=== PATIENT | male | born 1975 | race Caucasian/White ===

== ENCOUNTER 2023-10-16 21:25 | Emergency (ER) | payer OTHER, SELFPAY ==
[2023-10-16 21:27] VITALS: BP 160/89; BMI 31.2
--- NOTE | 2023-10-16 22:13 | ED.SKININJ ---
HPI-Injury
General
Chief Complaint: Skin Problem
Source: patient
Exam Limitations: none
Time Seen by Provider: 10/16/23 22:02
Travel History
Have you had any contact with someone who has COVID-19?: No
Do you have any symptoms of coronavirus? Fever > 100 degrees, chills, cough, shortness of breath, sore throat, loss of taste or smell, muscle aches, or headache?: No
History of Present Illness-Injury
Initial Injury comments:
48-year-old male who presents with redness swelling and pain to the inferior right buttock starting several days ago getting worse. He has been using warm soaks and compresses and today noticed purulent drainage. He does feel slightly improved
since it started draining. No measurable fever. No chest pain or shortness of breath. He is healthy otherwise. Not diabetic. No nausea or vomiting. No other complaints at this time
Phy Exam
Physical Exam
Physical Exam:
General: Well-appearing male no acute respiratory distress
HEENT: Normocephalic atraumatic
Skin: Right inferior buttock with induration and a draining area. There is a mild amount of purulent drainage. There is no palpable fluctuance. Total area of induration is about 4 cm in diameter. Patient's underwear was with significant mount of
purulent drainage in it.
Extremities: No cyanosis
Course
Orders/Labs/Results
Orders:
Orders
10/16/23 22:12
Cephalexin Monohydrate [Keflex] 500 mg PO NOW STA
Sulfamethox./Trimethoprim Ds [Bactrim Ds 800 mg/160 mg] 1 tablet PO NOW STA
Vital Signs
Initial and Last Documented VS:
Initial Vital Signs
Temp Pulse Resp BP Pulse Ox
99.4 F 107 16 160/89 98
10/16/23 21:27 10/16/23 21:27 10/16/23 21:27 10/16/23 21:27 10/16/23 21:27
Last Documented Vital Signs
Temp Pulse Resp BP Pulse Ox
99.4 F 107 16 160/89 98
10/16/23 21:27 10/16/23 21:27 10/16/23 21:27 10/16/23 21:27 10/16/23 21:27
MDM/Problems Addressed
Differential Diagnosis Includes:
Erythema and swelling to the right buttock. Question possible abscess versus for cellulitis.
Clinically on exam, there is no further fluctuance. It seems to have drained on its own. There is a residual induration noted and some tenderness. Will cover for staph and strep with Bactrim and Keflex. 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
candidate for doxycycline
At this point there is no indication for any further incision and drainage. Advised continued warm soaks or compresses and return precautions were given
*Critical Care Note
Total Time (30-74mins, 75-104mins- exclusive of procedures): Not Applicable
ED Attending Note
-
Portions of this chart may have been created with voice recognition software.� Occasional wrong word or��sound alike� substitutions may have occurred due to the inherent limitations of voice recognition software.
Discharge Plan
Departure
Patient Disposition: Home (Routine Discharge)
Date of Disposition: 10/16/23
Time of Disposition: 22:15
Patient with high blood pressure during this ER visit?: No
Discharge Problem:
Abscess
Instructions: Skin Abscess
Prescriptions:
New
sulfamethoxazole-trimethoprim [Bactrim DS] 800-160 mg tablet
1 tab PO BID Qty: 14 0RF
cephalexin 500 mg capsule
500 mg PO Q6H 7 Days Qty: 28 0RF
Activity Restrictions/Additional Instructions:
Take antibiotics as directed. Continue with warm soaks and/or compresses. Please return here for increasing swelling redness fever or other concerning findings
Interventions
Interventions:
*Risk Screen - Suicide Last Done: 10/16/23 21:27
*Neglect/Abuse Screening Last Done: 10/16/23 21:27
ED- Fall Risk Assessment Last Done: 10/16/23 22:04
*ED COVID-19 Vaccine History Last Done: 10/16/23 21:27
[2023-10-16] MEDS: BACTRIM DS 800 MG/160 MG 1 TABLET PO (22:19)
[2023-10-16] MEDS: KEFLEX 500 MG PO (22:19)
== END 2023-10-16 22:24 | disposition home or self-care (01) ==
LOC: EMR 21:25
PROVIDERS: EMERGENCY PHYSICIAN Emergency Medicine; FAMILY PHYSICIAN Family Medicine
DX: L02.31 Cutaneous abscess of buttock (principal)
CPT/HCPCS: 99283